=== PATIENT | male | born 1970 | race Caucasian/White ===

== ENCOUNTER 2021-06-02 12:26 | Inpatient (IN) ==
[2021-06-02 14:15] LABS: Basophils # 0.1 K/mcL (0.0-0.2); Basophils % 0.7 %; Eosinophils # 0.1 K/mcL (0.0-0.6); Eosinophils % 0.7 %; Hematocrit 42.5 % (37.5-50.1); Hemoglobin 14.5 g/dL (12.9-16.9); Lymphocytes # 2.4 K/mcL (0.6-4.6); Lymphocytes % 20.1 %; Mean Corpuscular HGB Conc 34.1 g/dL (31.6-35.5); Mean Corpuscular Hemoglobin 30.2 pg (28.0-33.3); Mean Corpuscular Volume 88.5 fL (83.0-100.0); Mean Platelet Volume 11.9 fL (9.4-12.4); Monocytes # 0.7 K/mcL (0.0-1.3); Monocytes % 5.8 %; Neutrophils # 8.4 K/mcL (1.6-8.9); Platelet Count 174 K/mcL (140-400); Red Cell Distribution Width 12.9 % (11.5-14.5); Segmented Neutrophils % 71.7 %; White Blood Count 11.7 K/mcL (4.3-11.1)
[2021-06-02 14:20] LABS: INR 1.1; Prothrombin Time 12.5 Seconds (9.4-12.1)
[2021-06-02 14:23] LABS: Activated Partial Thrombo Time 31.5 Seconds (26.0-36.0)
[2021-06-02 14:36] LABS: Alanine Aminotransferase 12 Units/L (7-52); Albumin 3.8 g/dL (3.5-5.7); Albumin/Globulin Ratio 0.8 (1.1-2.2); Alkaline Phosphatase 145 Units/L (34-104); Aspartate Amino Transferase 9 Units/L (13-39); BUN/Creatinine Ratio 13 (6-26); Bilirubin,Total 0.5 mg/dL (0.3-1.0); Blood Urea Nitrogen 7 mg/dL (6-20); Calcium 9.9 mg/dL (8.6-10.3); Carbon Dioxide 27 mEq/L (23-29); Chloride 91 mEq/L (98-107); Globulin 4.6 g/dL (2.4-3.5); Glucose 474 mg/dL (70-105); Osmolality,Calculated 285 (280-300); Potassium 4.5 mEq/L (3.5-5.1); Sodium 128 mEq/L (136-145); Total Protein 8.4 g/dL (6.4-8.9); eGFR For African Americans > 60 (> 60); eGFR For Non-African Americans > 60 (> 60)
[2021-06-02] MEDS ORDERED: Dextrose Gel 15 GM/37.5 ML TUBE PO PRN ×2 (16:23)
[2021-06-02] MEDS ORDERED: D5% in Water 1,000 ML IVC PRN (16:23)
[2021-06-02] MEDS ORDERED: Naloxone 0.4 MG/ML INJ IVP PRN (16:23)
[2021-06-02] MEDS ORDERED: *HR* Dextrose 50 % in Water (Syg) 50 ML SYRINGE IVP PRN (16:23)
[2021-06-02] MEDS ORDERED: Ondansetron 4 MG/2 ML VIAL IVP PRN (16:23)
[2021-06-02] MEDS ORDERED: Ringers Solution, Lactated 1,000 ML IVC SCH (17:00)
[2021-06-02] MEDS: Insulin LISPRO 300 UNITS/3 ML VIAL SUBQ SCH ×2 (17:09→20:13)
[2021-06-02] MEDS: *HR* OxyCODONE/APAP 5/325 TABLET PO PRN ×2 (17:09→21:52)
[2021-06-02] MEDS: Insulin DETEMIR 100 UNIT/ML X5UNITS SUBQ SCH (20:12)
[2021-06-02] MEDS: Pregabalin 50 MG CAPSULE PO SCH (20:12)
[2021-06-02] MEDS: Aspirin Enteric Coated 81 MG Tablet PO SCH (20:12)
[2021-06-02] MEDS: *HR* Buprenorphine HCl 8 MG TAB.SUBL SL SCH (20:12)
[2021-06-03] MEDS: *HR* OxyCODONE/APAP 5/325 TABLET PO PRN ×3 (01:54→13:25)
[2021-06-03 07:06] LABS: Hematocrit 40.4 % (37.5-50.1); Hemoglobin 13.6 g/dL (12.9-16.9); Mean Corpuscular HGB Conc 33.7 g/dL (31.6-35.5); Mean Corpuscular Hemoglobin 30.1 pg (28.0-33.3); Mean Corpuscular Volume 89.4 fL (83.0-100.0); Mean Platelet Volume 11.6 fL (9.4-12.4); Platelet Count 150 K/mcL (140-400); Red Blood Count 4.52 M/mcL (4.19-5.50); Red Cell Distribution Width 12.9 % (11.5-14.5); White Blood Count 7.9 K/mcL (4.3-11.1)
[2021-06-03 07:26] LABS: BUN/Creatinine Ratio 31 (6-26); Blood Urea Nitrogen 11 mg/dL (6-20); Calcium 8.9 mg/dL (8.6-10.3); Carbon Dioxide 28 mEq/L (23-29); Chloride 96 mEq/L (98-107); Glucose 264 mg/dL (70-105); Magnesium 1.6 mg/dL (1.6-2.6); Osmolality,Calculated 279 (280-300); Potassium 3.9 mEq/L (3.5-5.1); Sodium 130 mEq/L (136-145); eGFR For African Americans > 60 (> 60); eGFR For Non-African Americans > 60 (> 60)
[2021-06-03] MEDS: Insulin LISPRO 300 UNITS/3 ML VIAL SUBQ SCH ×4 (08:13→21:00)
[2021-06-03] MEDS ORDERED: Lidocaine -MPF 2% 5 ML VIAL ONE (08:22)
[2021-06-03] MEDS ORDERED: Ondansetron 4 MG/2 ML VIAL ONE (08:22)
[2021-06-03] MEDS ORDERED: *HR* Propofol 200 MG/20 ML VIAL IVP ONE (08:25)
[2021-06-03] MEDS ORDERED: *HR* FentaNYL (PF) 100 MCG/2 ML VIAL ONE (08:25)
[2021-06-03] MEDS ORDERED: *HR* Succinylcholine 200 MG/10 ML VIAL IVP ONE (08:27)
[2021-06-03] MEDS ORDERED: Famotidine 20 MG/2 ML VIAL IVP ONE (08:35)
[2021-06-03] MEDS ORDERED: Ondansetron 4 MG/2 ML VIAL IVP PRN (08:35)
[2021-06-03] MEDS ORDERED: *HR* OxyCODONE Immed Rel 5 MG TABLET PO PRN (08:35)
[2021-06-03] MEDS ORDERED: Lidocaine 1% 20 ML MDV ONE (08:39)
[2021-06-03] MEDS ORDERED: Pregabalin 75 MG CAPSULE PO ONE (08:40)
[2021-06-03] MEDS ORDERED: Insulin Human Regular 4 UNIT in 0.9 % Sodium Chloride 10 ML IV ONE (08:43)
[2021-06-03] MEDS ORDERED: Insulin Regular, Human 100 UNIT/ML ONE (09:01)
[2021-06-03] MEDS: Pregabalin 50 MG CAPSULE PO SCH ×3 (09:02→19:38)
[2021-06-03] MEDS: *HR* Buprenorphine HCl 8 MG TAB.SUBL SL SCH ×2 (09:02→19:38)
[2021-06-03] MEDS: Aspirin Enteric Coated 81 MG Tablet PO SCH ×2 (09:02→19:38)
[2021-06-03] MEDS ORDERED: CeFAZolin 2,000 MG/120 ML BAG IVPB ONE (10:00)
[2021-06-03] MEDS: *HR* HYDROmorphone PF 0.5 MG/0.5 ML SYRINGE IVP PRN ×8 (10:46→12:10)
[2021-06-03] MEDS ORDERED: Insulin Human Regular 3 UNIT in 0.9 % Sodium Chloride 10 ML IV ONE (11:13)
[2021-06-03] MEDS: *HR* OxyCODONE Immed Rel 5 MG TABLET PO PRN ×3 (16:12→23:07)
[2021-06-03] MEDS: Piperacillin/Tazobactam 3.375 GM in 0.9 % Sodium Chloride Mini Bag 100 ML IVPB SCH ×2 (16:44→23:07)
[2021-06-03] MEDS: Vancomycin 1,500 MG/265 ML IV.SOLN IVPB SCH (16:49)
[2021-06-03] MEDS: Insulin DETEMIR 100 UNIT/ML X5UNITS SUBQ SCH (19:40)
[2021-06-03] MEDS ORDERED: Ketorolac 30 MG/ML VIAL IVP ONE (20:19)
[2021-06-03] MEDS: Melatonin 3 MG TABLET PO PRN (21:00)
[2021-06-04] MEDS: *HR* OxyCODONE Immed Rel 5 MG TABLET PO PRN ×5 (06:00→20:26)
[2021-06-04] MEDS: Vancomycin 1,500 MG/265 ML IV.SOLN IVPB SCH (06:00)
[2021-06-04] MEDS: *HR* Enoxaparin 40 MG/0.4 ML SYRINGE SQ SCH (06:01)
[2021-06-04 07:14] LABS: Basophils % 0.5 %; Eosinophils % 0.5 %; Hematocrit 36.6 % (37.5-50.1); Hemoglobin 12.5 g/dL (12.9-16.9); Immature Granulocytes % 2.1 % (0-4); Lymphocytes # 2.3 K/mcL (0.6-4.6); Lymphocytes % 31.2 %; Mean Corpuscular HGB Conc 34.2 g/dL (31.6-35.5); Mean Corpuscular Hemoglobin 30.5 pg (28.0-33.3); Mean Corpuscular Volume 89.3 fL (83.0-100.0); Monocytes # 0.4 K/mcL (0.0-1.3); Monocytes % 5.8 %; Neutrophils # 4.5 K/mcL (1.6-8.9); Platelet Count 134 K/mcL (140-400); Red Cell Distribution Width 12.6 % (11.5-14.5); Segmented Neutrophils % 59.9 %; White Blood Count 7.5 K/mcL (4.3-11.1)
[2021-06-04] MEDS: Piperacillin/Tazobactam 3.375 GM in 0.9 % Sodium Chloride Mini Bag 100 ML IVPB SCH ×2 (07:45→16:18)
[2021-06-04] MEDS: Pregabalin 50 MG CAPSULE PO SCH ×3 (07:47→20:26)
[2021-06-04] MEDS: *HR* Buprenorphine HCl 8 MG TAB.SUBL SL SCH ×2 (07:47→20:26)
[2021-06-04] MEDS: Aspirin Enteric Coated 81 MG Tablet PO SCH ×2 (07:47→20:26)
[2021-06-04] MEDS: Insulin LISPRO 300 UNITS/3 ML VIAL SUBQ SCH ×7 (07:48→20:28)
[2021-06-04] MEDS ORDERED: *HR* OxyCODONE Immed Rel 5 MG TABLET PO PRN (10:44)
[2021-06-04] MEDS: Sennosides 8.6 MG TABLET PO SCH (11:20)
[2021-06-04 13:07] LABS: INR 1.1; Prothrombin Time 12.5 Seconds (9.4-12.1)
[2021-06-04 13:24] LABS: BUN/Creatinine Ratio 29 (6-26); Blood Urea Nitrogen 15 mg/dL (6-20); Calcium 8.5 mg/dL (8.6-10.3); Carbon Dioxide 27 mEq/L (23-29); Chloride 96 mEq/L (98-107); Glucose 299 mg/dL (70-105); Magnesium 1.5 mg/dL (1.6-2.6); Osmolality,Calculated 282 (280-300); Potassium 3.7 mEq/L (3.5-5.1); Sodium 130 mEq/L (136-145); eGFR For African Americans > 60 (> 60); eGFR For Non-African Americans > 60 (> 60)
[2021-06-04] MEDS ORDERED: Isovue-370 500 ML BOTTLE IVP ONE (15:44)
[2021-06-04] MEDS: Magnesium Oxide 400 MG TABLET PO SCH (16:24)
[2021-06-04] MEDS: amLODIPine 5 MG TABLET PO SCH (16:24)
[2021-06-04] MEDS ORDERED: Insulin DETEMIR 100 UNIT/ML X5UNITS SUBQ SCH (21:00)
[2021-06-05] MEDS: Piperacillin/Tazobactam 3.375 GM in 0.9 % Sodium Chloride Mini Bag 100 ML IVPB SCH ×4 (00:53→23:18)
[2021-06-05] MEDS: Vancomycin 1,500 MG/265 ML IV.SOLN IVPB SCH (00:53)
[2021-06-05] MEDS: *HR* OxyCODONE Immed Rel 5 MG TABLET PO PRN ×5 (03:02→20:42)
[2021-06-05] MEDS: *HR* Enoxaparin 40 MG/0.4 ML SYRINGE SQ SCH (05:36)
[2021-06-05] MEDS: Magnesium Oxide 400 MG TABLET PO SCH (07:45)
[2021-06-05] MEDS: Pregabalin 50 MG CAPSULE PO SCH ×3 (07:45→20:09)
[2021-06-05] MEDS: amLODIPine 5 MG TABLET PO SCH (07:45)
[2021-06-05] MEDS: Sennosides 8.6 MG TABLET PO SCH (07:46)
[2021-06-05] MEDS: Aspirin Enteric Coated 81 MG Tablet PO SCH ×2 (07:46→20:09)
[2021-06-05] MEDS: *HR* Buprenorphine HCl 8 MG TAB.SUBL SL SCH ×2 (07:46→20:09)
[2021-06-05] MEDS: Insulin LISPRO 300 UNITS/3 ML VIAL SUBQ SCH ×7 (07:47→20:48)
[2021-06-05] MEDS ORDERED: Vancomycin 1,500 MG/265 ML IV.SOLN IVPB SCH (12:00)
[2021-06-05] MEDS ORDERED: polyethylene glycoL 3350 17 GM POWD.PACK PO ONE (14:00)
[2021-06-05] MEDS: Vancomycin 1,750 MG/517.5 ML IV.SOLN IVPB SCH (14:42)
[2021-06-05 15:59] LABS: Basophils # 0.1 K/mcL (0.0-0.2); Basophils % 0.7 %; Eosinophils # 0.1 K/mcL (0.0-0.6); Hemoglobin 13.4 g/dL (12.9-16.9); Immature Granulocytes % 1.8 % (0-4); Lymphocytes % 28.2 %; Mean Corpuscular HGB Conc 36.2 g/dL (31.6-35.5); Mean Corpuscular Hemoglobin 31.2 pg (28.0-33.3); Mean Platelet Volume 11.3 fL (9.4-12.4); Monocytes # 0.5 K/mcL (0.0-1.3); Monocytes % 6.8 %; Neutrophils # 4.4 K/mcL (1.6-8.9); Platelet Count 188 K/mcL (140-400); Red Cell Distribution Width 12.7 % (11.5-14.5); Segmented Neutrophils % 61.5 %; White Blood Count 7.2 K/mcL (4.3-11.1)
[2021-06-05 16:25] LABS: Platelet Estimate Normal (Normal)
[2021-06-05] MEDS: Melatonin 3 MG TABLET PO PRN (20:41)
[2021-06-05] MEDS: Insulin DETEMIR 100 UNIT/ML X5UNITS SUBQ SCH (20:47)
[2021-06-05 21:30] LABS: BUN/Creatinine Ratio 25 (6-26); Blood Urea Nitrogen 13 mg/dL (6-20); Calcium 9.2 mg/dL (8.6-10.3); Carbon Dioxide 28 mEq/L (23-29); Chloride 93 mEq/L (98-107); Glucose 330 mg/dL (70-105); Magnesium 1.7 mg/dL (1.6-2.6); Osmolality,Calculated 277 (280-300); Potassium 4.8 mEq/L (3.5-5.1); Sodium 127 mEq/L (136-145); eGFR For African Americans > 60 (> 60); eGFR For Non-African Americans > 60 (> 60)
[2021-06-06] MEDS: Vancomycin 1,750 MG/517.5 ML IV.SOLN IVPB SCH ×2 (01:21→14:31)
[2021-06-06] MEDS: *HR* OxyCODONE Immed Rel 5 MG TABLET PO PRN ×5 (01:21→21:30)
[2021-06-06 04:58] LABS: Basophils # 0.1 K/mcL (0.0-0.2); Basophils % 0.7 %; Eosinophils # 0.1 K/mcL (0.0-0.6); Eosinophils % 1.2 %; Hematocrit 38.5 % (37.5-50.1); Hemoglobin 13.4 g/dL (12.9-16.9); Immature Granulocytes % 3.5 % (0-4); Lymphocytes # 1.7 K/mcL (0.6-4.6); Lymphocytes % 22.6 %; Mean Corpuscular HGB Conc 34.8 g/dL (31.6-35.5); Mean Corpuscular Hemoglobin 30.3 pg (28.0-33.3); Mean Corpuscular Volume 87.1 fL (83.0-100.0); Mean Platelet Volume 11.6 fL (9.4-12.4); Monocytes # 0.6 K/mcL (0.0-1.3); Monocytes % 7.3 %; Neutrophils # 4.9 K/mcL (1.6-8.9); Nucleated Red Blood Cells 0.9 /100 WBC (0); Platelet Count 161 K/mcL (140-400); Red Blood Count 4.42 M/mcL (4.19-5.50); Red Cell Distribution Width 12.9 % (11.5-14.5); Segmented Neutrophils % 64.7 %; White Blood Count 7.5 K/mcL (4.3-11.1)
[2021-06-06 05:11] LABS: BUN/Creatinine Ratio 30 (6-26); Blood Urea Nitrogen 13 mg/dL (6-20); Calcium 9.1 mg/dL (8.6-10.3); Carbon Dioxide 26 mEq/L (23-29); Chloride 98 mEq/L (98-107); Glucose 359 mg/dL (70-105); Osmolality,Calculated 287 (280-300); Potassium 4.8 mEq/L (3.5-5.1); Sodium 131 mEq/L (136-145); eGFR For African Americans > 60 (> 60); eGFR For Non-African Americans > 60 (> 60)
[2021-06-06] MEDS: *HR* Enoxaparin 40 MG/0.4 ML SYRINGE SQ SCH (05:27)
[2021-06-06] MEDS: Aspirin Enteric Coated 81 MG Tablet PO SCH ×2 (08:23→20:11)
[2021-06-06] MEDS: Magnesium Oxide 400 MG TABLET PO SCH (08:23)
[2021-06-06] MEDS: Pregabalin 50 MG CAPSULE PO SCH ×3 (08:24→20:12)
[2021-06-06] MEDS: *HR* Buprenorphine HCl 8 MG TAB.SUBL SL SCH ×2 (08:24→20:11)
[2021-06-06] MEDS: Piperacillin/Tazobactam 3.375 GM in 0.9 % Sodium Chloride Mini Bag 100 ML IVPB SCH ×2 (08:24→16:08)
[2021-06-06] MEDS: amLODIPine 5 MG TABLET PO SCH (08:24)
[2021-06-06] MEDS: Insulin LISPRO 300 UNITS/3 ML VIAL SUBQ SCH ×7 (08:25→20:12)
[2021-06-06] MEDS ORDERED: Sennosides 8.6 MG TABLET PO SCH (09:00)
[2021-06-06] MEDS ORDERED: Milk and Molasses Enema 200 ML RC ONE (11:42)
[2021-06-06] MEDS ORDERED: Isovue-370 500 ML BOTTLE IVP ONE (17:40)
[2021-06-06] MEDS: Sennosides 8.6 MG TABLET PO SCH (20:11)
[2021-06-06] MEDS: Insulin DETEMIR 100 UNIT/ML X5UNITS SUBQ SCH (20:12)
[2021-06-07] MEDS: Piperacillin/Tazobactam 3.375 GM in 0.9 % Sodium Chloride Mini Bag 100 ML IVPB SCH ×4 (00:20→23:33)
[2021-06-07] MEDS: *HR* OxyCODONE Immed Rel 5 MG TABLET PO PRN ×6 (01:26→23:31)
[2021-06-07 02:02] LABS: Basophils # 0.1 K/mcL (0.0-0.2); Basophils % 0.7 %; Eosinophils # 0.1 K/mcL (0.0-0.6); Eosinophils % 1.2 %; Hematocrit 38.5 % (37.5-50.1); Hemoglobin 13.6 g/dL (12.9-16.9); Immature Granulocytes % 2.9 % (0-4); Lymphocytes # 2.1 K/mcL (0.6-4.6); Lymphocytes % 25.5 %; Mean Corpuscular HGB Conc 35.3 g/dL (31.6-35.5); Mean Corpuscular Hemoglobin 30.4 pg (28.0-33.3); Mean Corpuscular Volume 85.9 fL (83.0-100.0); Mean Platelet Volume 11.6 fL (9.4-12.4); Monocytes # 0.6 K/mcL (0.0-1.3); Monocytes % 7.3 %; Neutrophils # 5.2 K/mcL (1.6-8.9); Platelet Count 180 K/mcL (140-400); Red Blood Count 4.48 M/mcL (4.19-5.50); Red Cell Distribution Width 12.8 % (11.5-14.5); Segmented Neutrophils % 62.4 %; White Blood Count 8.3 K/mcL (4.3-11.1)
[2021-06-07 02:39] LABS: BUN/Creatinine Ratio 21 (6-26); Blood Urea Nitrogen 13 mg/dL (6-20); Calcium 9.3 mg/dL (8.6-10.3); Carbon Dioxide 29 mEq/L (23-29); Chloride 94 mEq/L (98-107); Glucose 368 mg/dL (70-105); Osmolality,Calculated 281 (280-300); Potassium 4.6 mEq/L (3.5-5.1); Sodium 128 mEq/L (136-145); Vancomycin,Trough 7 mcg/mL (5-10); eGFR For African Americans > 60 (> 60); eGFR For Non-African Americans > 60 (> 60)
[2021-06-07] MEDS: Vancomycin 1,500 MG/265 ML IV.SOLN IVPB SCH ×3 (04:15→19:53)
[2021-06-07] MEDS: *HR* Enoxaparin 40 MG/0.4 ML SYRINGE SQ SCH (06:26)
[2021-06-07] MEDS: Insulin LISPRO 300 UNITS/3 ML VIAL SUBQ SCH ×7 (08:57→19:53)
[2021-06-07] MEDS: Sennosides 8.6 MG TABLET PO SCH ×2 (08:58→19:49)
[2021-06-07] MEDS: Aspirin Enteric Coated 81 MG Tablet PO SCH ×2 (08:58→19:50)
[2021-06-07] MEDS: *HR* Buprenorphine HCl 8 MG TAB.SUBL SL SCH ×2 (08:58→19:49)
[2021-06-07] MEDS: Pregabalin 50 MG CAPSULE PO SCH ×3 (08:58→19:49)
[2021-06-07] MEDS: amLODIPine 5 MG TABLET PO SCH (08:59)
[2021-06-07] MEDS: Magnesium Oxide 400 MG TABLET PO SCH (08:59)
[2021-06-07] MEDS ORDERED: Insulin DETEMIR 100 UNIT/ML X5UNITS SUBQ ONE (15:37)
[2021-06-07] MEDS ORDERED: Insulin DETEMIR 100 UNIT/ML X5UNITS SUBQ SCH ×2 (15:45→21:00)
[2021-06-08] MEDS ORDERED: Insulin Human Regular 10 UNIT in 0.9 % Sodium Chloride 10 ML IV ONE (01:47)
[2021-06-08] MEDS ORDERED: Insulin DETEMIR 100 UNIT/ML X5UNITS SUBQ ONE (02:36)
[2021-06-08] MEDS: *HR* OxyCODONE Immed Rel 5 MG TABLET PO PRN ×6 (03:32→23:26)
[2021-06-08] MEDS: *HR* Enoxaparin 40 MG/0.4 ML SYRINGE SQ SCH (05:17)
[2021-06-08] MEDS: Insulin LISPRO 300 UNITS/3 ML VIAL SUBQ SCH ×8 (05:17→20:49)
[2021-06-08 05:37] LABS: Basophils # 0.1 K/mcL (0.0-0.2); Basophils % 0.8 %; Eosinophils # 0.1 K/mcL (0.0-0.6); Eosinophils % 1.3 %; Hematocrit 37.2 % (37.5-50.1); Hemoglobin 13.2 g/dL (12.9-16.9); Immature Granulocytes % 1.3 % (0-4); Lymphocytes # 2.2 K/mcL (0.6-4.6); Lymphocytes % 27.8 %; Mean Corpuscular HGB Conc 35.5 g/dL (31.6-35.5); Mean Corpuscular Hemoglobin 30.8 pg (28.0-33.3); Mean Corpuscular Volume 86.9 fL (83.0-100.0); Mean Platelet Volume 11.6 fL (9.4-12.4); Monocytes # 0.6 K/mcL (0.0-1.3); Monocytes % 7.1 %; Neutrophils # 4.8 K/mcL (1.6-8.9); Platelet Count 170 K/mcL (140-400); Red Blood Count 4.28 M/mcL (4.19-5.50); Red Cell Distribution Width 13.2 % (11.5-14.5); Segmented Neutrophils % 61.7 %; White Blood Count 7.8 K/mcL (4.3-11.1)
[2021-06-08] MEDS ORDERED: Insulin LISPRO 300 UNITS/3 ML VIAL SUBQ SCH ×3 (06:00→20:34)
[2021-06-08 06:19] LABS: BUN/Creatinine Ratio 30 (6-26); Blood Urea Nitrogen 13 mg/dL (6-20); Calcium 9.3 mg/dL (8.6-10.3); Carbon Dioxide 27 mEq/L (23-29); Chloride 95 mEq/L (98-107); Glucose 322 mg/dL (70-105); Osmolality,Calculated 283 (280-300); Potassium 4.2 mEq/L (3.5-5.1); Sodium 130 mEq/L (136-145); eGFR For African Americans > 60 (> 60); eGFR For Non-African Americans > 60 (> 60)
[2021-06-08] MEDS: Vancomycin 1,750 MG/517.5 ML IV.SOLN IVPB SCH ×3 (06:44→22:06)
[2021-06-08] MEDS: Aspirin Enteric Coated 81 MG Tablet PO SCH ×2 (08:15→20:40)
[2021-06-08] MEDS: amLODIPine 5 MG TABLET PO SCH (08:16)
[2021-06-08] MEDS: *HR* Buprenorphine HCl 8 MG TAB.SUBL SL SCH ×2 (08:16→20:40)
[2021-06-08] MEDS: Pregabalin 50 MG CAPSULE PO SCH ×2 (08:16→20:40)
[2021-06-08] MEDS: Magnesium Oxide 400 MG TABLET PO SCH (08:16)
[2021-06-08] MEDS: Sennosides 8.6 MG TABLET PO SCH ×2 (08:16→20:40)
[2021-06-08] MEDS: Piperacillin/Tazobactam 3.375 GM in 0.9 % Sodium Chloride Mini Bag 100 ML IVPB SCH (08:17)
[2021-06-08] MEDS: *HR* HYDROmorphone (PF) 1 MG/ML SYRINGE IVP PRN ×3 (11:52→20:41)
[2021-06-08] MEDS ORDERED: Vancomycin 1,000 MG VIAL ONE (13:09)
[2021-06-08] MEDS ORDERED: *HR* OxyCODONE Immed Rel 5 MG TABLET PO PRN ×3 (13:10→16:55)
[2021-06-08] MEDS ORDERED: Ondansetron 4 MG/2 ML VIAL IVP PRN ×3 (13:10→16:55)
[2021-06-08] MEDS ORDERED: Promethazine 6.25 MG in Water for inj. (sterile) 20 ML IVPB PRN (13:10)
[2021-06-08] MEDS ORDERED: *HR* Propofol 200 MG/20 ML VIAL IVP ONE (13:13)
[2021-06-08] MEDS ORDERED: Lidocaine -MPF 2% 2 ML VIAL ONE (13:13)
[2021-06-08] MEDS ORDERED: *HR* Rocuronium Bromide 50 MG/5 ML VIAL ONE (13:13)
[2021-06-08] MEDS ORDERED: Lidocaine HCL 4 ML Topical Solution (Laryng-O-Jet Kit Sterile Pak) TP ONE (13:15)
[2021-06-08] MEDS ORDERED: *HR* Midazolam HCl 2 MG/2 ML VIAL ONE (13:52)
[2021-06-08] MEDS ORDERED: *HR* FentaNYL (PF) 100 MCG/2 ML VIAL ONE ×2 (13:53→14:52)
[2021-06-08] MEDS ORDERED: EPHEDrine 50 MG/ML VIAL ONE (14:43)
[2021-06-08] MEDS ORDERED: *HR* Vasopressin 20 UNIT/ML VIAL ONE (14:52)
[2021-06-08] MEDS ORDERED: Vancomycin 1,000 MG, Sodium Chloride IRRigation 1,000 ML IR ONE (15:00)
[2021-06-08] MEDS: *HR* HYDROmorphone PF 0.5 MG/0.5 ML SYRINGE IVP PRN ×4 (15:49→16:09)
[2021-06-08] MEDS ORDERED: Ringers Solution, Lactated 1,000 ML ONE (16:18)
[2021-06-08] MEDS ORDERED: *HR* Labetalol 20 MG/4 ML SYRINGE IVP PRN (16:55)
[2021-06-08] MEDS ORDERED: D5% in Water 1,000 ML IVC PRN (16:55)
[2021-06-08] MEDS ORDERED: Melatonin 3 MG TABLET PO PRN (16:55)
[2021-06-08] MEDS ORDERED: Naloxone 0.4 MG/ML INJ IVP PRN (16:55)
[2021-06-08] MEDS ORDERED: Dextrose Gel 15 GM/37.5 ML TUBE PO PRN ×2 (16:55)
[2021-06-08] MEDS ORDERED: *HR* Dextrose 50 % in Water (Syg) 50 ML SYRINGE IVP PRN (16:55)
[2021-06-08] MEDS ORDERED: *HR* Labetalol 20 MG/4 ML SYRINGE IVP ONE (16:57)
[2021-06-08] MEDS ORDERED: Ketorolac 30 MG/ML VIAL IVP ONE (18:22)
[2021-06-08] MEDS ORDERED: Insulin DETEMIR 100 UNIT/ML X5UNITS SUBQ SCH (21:00)
[2021-06-08] MEDS ORDERED: Insulin LISPRO 300 UNITS/3 ML VIAL SUBQ ONE (23:17)
[2021-06-09] MEDS: *HR* HYDROmorphone (PF) 1 MG/ML SYRINGE IVP PRN ×4 (00:51→23:31)
[2021-06-09] MEDS: Insulin LISPRO 300 UNITS/3 ML VIAL SUBQ SCH ×9 (00:53→21:30)
[2021-06-09] MEDS: *HR* OxyCODONE Immed Rel 5 MG TABLET PO PRN ×4 (05:20→21:29)
[2021-06-09] MEDS: *HR* Enoxaparin 40 MG/0.4 ML SYRINGE SQ SCH (05:20)
[2021-06-09] MEDS: Vancomycin 1,750 MG/517.5 ML IV.SOLN IVPB SCH (05:26)
[2021-06-09 06:49] LABS: Hematocrit 28.6 % (37.5-50.1); Mean Corpuscular HGB Conc 33.9 g/dL (31.6-35.5); Mean Corpuscular Hemoglobin 30.1 pg (28.0-33.3); Mean Corpuscular Volume 88.8 fL (83.0-100.0); Mean Platelet Volume 11.8 fL (9.4-12.4); Platelet Count 153 K/mcL (140-400); Red Blood Count 3.22 M/mcL (4.19-5.50); Red Cell Distribution Width 13.4 % (11.5-14.5); White Blood Count 10.4 K/mcL (4.3-11.1)
[2021-06-09 06:51] LABS: Hemoglobin 9.7 g/dL (12.9-16.9)
[2021-06-09 07:03] LABS: BUN/Creatinine Ratio 24 (6-26); Blood Urea Nitrogen 29 mg/dL (6-20); Calcium 8.7 mg/dL (8.6-10.3); Carbon Dioxide 27 mEq/L (23-29); Chloride 94 mEq/L (98-107); Glucose 326 mg/dL (70-105); Magnesium 1.8 mg/dL (1.6-2.6); Osmolality,Calculated 284 (280-300); Potassium 4.4 mEq/L (3.5-5.1); Sodium 128 mEq/L (136-145); eGFR For African Americans > 60 (> 60); eGFR For Non-African Americans > 60 (> 60)
[2021-06-09] MEDS: Pregabalin 50 MG CAPSULE PO SCH ×3 (07:57→21:29)
[2021-06-09] MEDS: Magnesium Oxide 400 MG TABLET PO SCH (07:57)
[2021-06-09] MEDS: Aspirin Enteric Coated 81 MG Tablet PO SCH ×2 (07:57→21:28)
[2021-06-09] MEDS: Sennosides 8.6 MG TABLET PO SCH ×2 (07:57→21:29)
[2021-06-09] MEDS: amLODIPine 5 MG TABLET PO SCH (07:58)
[2021-06-09] MEDS: *HR* Buprenorphine HCl 8 MG TAB.SUBL SL SCH ×2 (07:58→21:29)
[2021-06-09] MEDS ORDERED: Insulin DETEMIR 100 UNIT/ML X5UNITS SUBQ SCH (21:00)
[2021-06-10] MEDS: *HR* OxyCODONE Immed Rel 5 MG TABLET PO PRN ×5 (01:55→22:06)
[2021-06-10] MEDS ORDERED: polyethylene glycoL 3350 17 GM POWD.PACK PO PRN (02:44)
[2021-06-10] MEDS: *HR* HYDROmorphone (PF) 1 MG/ML SYRINGE IVP PRN ×7 (02:57→21:30)
[2021-06-10] MEDS: Insulin LISPRO 300 UNITS/3 ML VIAL SUBQ SCH ×8 (02:58→21:29)
[2021-06-10 05:06] LABS: Mean Corpuscular HGB Conc 33.3 g/dL (31.6-35.5); Mean Corpuscular Hemoglobin 30.1 pg (28.0-33.3); Mean Corpuscular Volume 90.3 fL (83.0-100.0); Mean Platelet Volume 12.1 fL (9.4-12.4); Platelet Count 149 K/mcL (140-400); Red Blood Count 2.99 M/mcL (4.19-5.50); Red Cell Distribution Width 13.8 % (11.5-14.5); White Blood Count 11.2 K/mcL (4.3-11.1)
[2021-06-10] MEDS ORDERED: Insulin Human Regular 5 UNIT in 0.9 % Sodium Chloride 10 ML IV ONE (05:19)
[2021-06-10 05:21] LABS: BUN/Creatinine Ratio 26 (6-26); Blood Urea Nitrogen 32 mg/dL (6-20); Calcium 9.9 mg/dL (8.6-10.3); Carbon Dioxide 27 mEq/L (23-29); Chloride 95 mEq/L (98-107); Glucose 409 mg/dL (70-105); Magnesium 1.8 mg/dL (1.6-2.6); Osmolality,Calculated 290 (280-300); Potassium 5.1 mEq/L (3.5-5.1); Sodium 128 mEq/L (136-145); eGFR For African Americans > 60 (> 60); eGFR For Non-African Americans > 60 (> 60)
[2021-06-10] MEDS: *HR* Enoxaparin 40 MG/0.4 ML SYRINGE SQ SCH (06:00)
[2021-06-10] MEDS ORDERED: Insulin DETEMIR 100 UNIT/ML X5UNITS SUBQ SCH (06:00)
[2021-06-10] MEDS: Pregabalin 50 MG CAPSULE PO SCH ×3 (07:34→21:25)
[2021-06-10] MEDS: Aspirin Enteric Coated 81 MG Tablet PO SCH ×2 (07:35→21:26)
[2021-06-10] MEDS: *HR* Buprenorphine HCl 8 MG TAB.SUBL SL SCH ×2 (07:35→21:25)
[2021-06-10] MEDS: Magnesium Oxide 400 MG TABLET PO SCH (07:35)
[2021-06-10] MEDS: Sennosides 8.6 MG TABLET PO SCH ×2 (07:35→21:28)
[2021-06-10] MEDS: amLODIPine 5 MG TABLET PO SCH (07:35)
[2021-06-10] MEDS ORDERED: Bisacodyl 10 MG RECTAL SUPPOSITORY RC PRN (09:52)
[2021-06-10] MEDS ORDERED: Insulin LISPRO 300 UNITS/3 ML VIAL SUBQ ONE (15:49)
[2021-06-10] MEDS: Insulin DETEMIR 100 UNIT/ML X5UNITS SUBQ SCH (18:08)
[2021-06-11] MEDS: *HR* HYDROmorphone (PF) 1 MG/ML SYRINGE IVP PRN ×6 (00:39→23:34)
[2021-06-11] MEDS: Insulin LISPRO 300 UNITS/3 ML VIAL SUBQ SCH ×10 (01:48→23:37)
[2021-06-11] MEDS: *HR* OxyCODONE Immed Rel 5 MG TABLET PO PRN ×5 (02:07→22:10)
[2021-06-11] MEDS ORDERED: *HR* HYDROmorphone (PF) 1 MG/ML SYRINGE IVP ONE (03:00)
[2021-06-11] MEDS ORDERED: Vancomycin 1,500 MG/265 ML IV.SOLN IVPB ONE (04:08)
[2021-06-11] MEDS: Insulin DETEMIR 100 UNIT/ML X5UNITS SUBQ SCH ×2 (06:16→18:06)
[2021-06-11] MEDS: *HR* Enoxaparin 40 MG/0.4 ML SYRINGE SQ SCH (06:16)
[2021-06-11] MEDS: Magnesium Oxide 400 MG TABLET PO SCH (07:46)
[2021-06-11] MEDS: *HR* Buprenorphine HCl 8 MG TAB.SUBL SL SCH ×2 (07:46→20:32)
[2021-06-11] MEDS: Sennosides 8.6 MG TABLET PO SCH ×2 (07:46→20:32)
[2021-06-11] MEDS: amLODIPine 5 MG TABLET PO SCH (07:46)
[2021-06-11] MEDS: Pregabalin 50 MG CAPSULE PO SCH ×3 (07:46→20:32)
[2021-06-11] MEDS: Aspirin Enteric Coated 81 MG Tablet PO SCH ×2 (07:47→20:32)
[2021-06-11] MEDS ORDERED: Milk and Molasses Enema 200 ML RC PRN (15:04)
[2021-06-12 01:00] LABS: Hematocrit 26.4 % (37.5-50.1); Hemoglobin 8.8 g/dL (12.9-16.9); Mean Corpuscular HGB Conc 33.3 g/dL (31.6-35.5); Mean Corpuscular Hemoglobin 30.6 pg (28.0-33.3); Mean Corpuscular Volume 91.7 fL (83.0-100.0); Mean Platelet Volume 12.2 fL (9.4-12.4); Platelet Count 154 K/mcL (140-400); Red Blood Count 2.88 M/mcL (4.19-5.50); Red Cell Distribution Width 14.3 % (11.5-14.5); White Blood Count 8.9 K/mcL (4.3-11.1)
[2021-06-12 01:17] LABS: BUN/Creatinine Ratio 25 (6-26); Blood Urea Nitrogen 33 mg/dL (6-20); Calcium 10.2 mg/dL (8.6-10.3); Carbon Dioxide 31 mEq/L (23-29); Chloride 93 mEq/L (98-107); Glucose 452 mg/dL (70-105); Osmolality,Calculated 303 (280-300); Potassium 4.5 mEq/L (3.5-5.1); Sodium 133 mEq/L (136-145); eGFR For African Americans > 60 (> 60); eGFR For Non-African Americans 56 (> 60)
[2021-06-12] MEDS: *HR* HYDROmorphone (PF) 1 MG/ML SYRINGE IVP PRN ×4 (02:34→19:52)
[2021-06-12] MEDS: Insulin LISPRO 300 UNITS/3 ML VIAL SUBQ SCH ×8 (04:52→22:41)
[2021-06-12] MEDS: *HR* OxyCODONE Immed Rel 5 MG TABLET PO PRN ×4 (04:52→22:34)
[2021-06-12] MEDS: *HR* Enoxaparin 40 MG/0.4 ML SYRINGE SQ SCH (04:52)
[2021-06-12] MEDS: Pregabalin 50 MG CAPSULE PO SCH ×3 (07:54→19:52)
[2021-06-12] MEDS: *HR* Buprenorphine HCl 8 MG TAB.SUBL SL SCH ×2 (07:54→19:52)
[2021-06-12] MEDS: Sennosides 8.6 MG TABLET PO SCH ×2 (07:55→19:52)
[2021-06-12] MEDS: Magnesium Oxide 400 MG TABLET PO SCH (07:55)
[2021-06-12] MEDS: Aspirin Enteric Coated 81 MG Tablet PO SCH ×2 (07:56→19:52)
[2021-06-12] MEDS: amLODIPine 5 MG TABLET PO SCH (07:56)
[2021-06-12] MEDS: Insulin DETEMIR 100 UNIT/ML X5UNITS SUBQ SCH ×2 (09:24→17:52)
[2021-06-12] MEDS ORDERED: 0.9 % Sodium Chloride 1,000 ML IVC SCH (12:00)
[2021-06-13] MEDS: *HR* HYDROmorphone (PF) 1 MG/ML SYRINGE IVP PRN ×5 (00:25→19:08)
[2021-06-13] MEDS: Insulin LISPRO 300 UNITS/3 ML VIAL SUBQ SCH ×9 (00:26→22:42)
[2021-06-13] MEDS: *HR* OxyCODONE Immed Rel 5 MG TABLET PO PRN ×5 (02:41→22:41)
[2021-06-13 03:02] LABS: Hematocrit 25.9 % (37.5-50.1); Hemoglobin 8.4 g/dL (12.9-16.9); Mean Corpuscular HGB Conc 32.4 g/dL (31.6-35.5); Mean Corpuscular Hemoglobin 30.1 pg (28.0-33.3); Mean Corpuscular Volume 92.8 fL (83.0-100.0); Mean Platelet Volume 12.2 fL (9.4-12.4); Platelet Count 160 K/mcL (140-400); Red Blood Count 2.79 M/mcL (4.19-5.50); Red Cell Distribution Width 14.9 % (11.5-14.5); White Blood Count 8.6 K/mcL (4.3-11.1)
[2021-06-13 03:05] LABS: BUN/Creatinine Ratio 32 (6-26); Blood Urea Nitrogen 37 mg/dL (6-20); Calcium 9.8 mg/dL (8.6-10.3); Carbon Dioxide 30 mEq/L (23-29); Chloride 102 mEq/L (98-107); Glucose 239 mg/dL (70-105); Osmolality,Calculated 286 (280-300); Potassium 4.1 mEq/L (3.5-5.1); Sodium 130 mEq/L (136-145); eGFR For African Americans > 60 (> 60); eGFR For Non-African Americans > 60 (> 60)
[2021-06-13] MEDS: *HR* Enoxaparin 40 MG/0.4 ML SYRINGE SQ SCH (06:28)
[2021-06-13] MEDS: Insulin DETEMIR 100 UNIT/ML X5UNITS SUBQ SCH ×2 (06:28→17:21)
[2021-06-13] MEDS: Pregabalin 50 MG CAPSULE PO SCH ×3 (08:16→22:40)
[2021-06-13] MEDS: Magnesium Oxide 400 MG TABLET PO SCH (08:16)
[2021-06-13] MEDS: Aspirin Enteric Coated 81 MG Tablet PO SCH ×2 (08:16→22:41)
[2021-06-13] MEDS: amLODIPine 5 MG TABLET PO SCH (08:16)
[2021-06-13] MEDS: *HR* Buprenorphine HCl 8 MG TAB.SUBL SL SCH ×2 (08:17→22:41)
[2021-06-13] MEDS: Sennosides 8.6 MG TABLET PO SCH ×2 (08:17→22:41)
[2021-06-14] MEDS: Insulin LISPRO 300 UNITS/3 ML VIAL SUBQ SCH ×9 (00:58→20:43)
[2021-06-14] MEDS: *HR* HYDROmorphone (PF) 1 MG/ML SYRINGE IVP PRN ×5 (01:06→22:23)
[2021-06-14] MEDS: *HR* OxyCODONE Immed Rel 5 MG TABLET PO PRN ×4 (04:39→20:42)
[2021-06-14] MEDS: Insulin DETEMIR 100 UNIT/ML X5UNITS SUBQ SCH ×2 (06:08→17:43)
[2021-06-14] MEDS: *HR* Enoxaparin 40 MG/0.4 ML SYRINGE SQ SCH (06:08)
[2021-06-14] MEDS: Magnesium Oxide 400 MG TABLET PO SCH (08:47)
[2021-06-14] MEDS: Pregabalin 50 MG CAPSULE PO SCH ×3 (08:47→20:41)
[2021-06-14] MEDS: Sennosides 8.6 MG TABLET PO SCH ×2 (08:48→20:42)
[2021-06-14] MEDS: Aspirin Enteric Coated 81 MG Tablet PO SCH ×2 (08:48→20:42)
[2021-06-14] MEDS: amLODIPine 5 MG TABLET PO SCH (08:48)
[2021-06-14] MEDS: *HR* Buprenorphine HCl 8 MG TAB.SUBL SL SCH ×2 (08:48→20:42)
[2021-06-15] MEDS: Insulin LISPRO 300 UNITS/3 ML VIAL SUBQ SCH ×6 (00:55→12:27)
[2021-06-15 03:43] VITALS: O2SAT 96
[2021-06-15] MEDS: *HR* Enoxaparin 40 MG/0.4 ML SYRINGE SQ SCH (05:08)
[2021-06-15] MEDS: *HR* HYDROmorphone (PF) 1 MG/ML SYRINGE IVP PRN ×2 (05:26→12:27)
[2021-06-15] MEDS: Insulin DETEMIR 100 UNIT/ML X5UNITS SUBQ SCH (05:35)
[2021-06-15] MEDS: Pregabalin 50 MG CAPSULE PO SCH ×2 (08:51→14:49)
[2021-06-15] MEDS: Magnesium Oxide 400 MG TABLET PO SCH (08:52)
[2021-06-15] MEDS: *HR* Buprenorphine HCl 8 MG TAB.SUBL SL SCH (08:52)
[2021-06-15] MEDS: amLODIPine 5 MG TABLET PO SCH (08:52)
[2021-06-15] MEDS: *HR* OxyCODONE Immed Rel 5 MG TABLET PO PRN ×2 (08:52→14:49)
[2021-06-15] MEDS: Sennosides 8.6 MG TABLET PO SCH (08:52)
[2021-06-15] MEDS: Aspirin Enteric Coated 81 MG Tablet PO SCH (08:52)
[2021-06-15 10:16] LABS: Estimated Average Glucose 243 mg/dl; Hemoglobin A1C 10.1 %
[2021-06-15 11:27] LABS: Adenovirus Not Detected (Not Detect); Bordetella Pertussis Not Detected (Not Detect); Chlamydophila pneumoniae Not Detected (Not Detect); Coronavirus 229E Not Detected (Not Detect); Coronavirus HKU1 Not Detected (Not Detect); Coronavirus NL63 Not Detected (Not Detect); Coronavirus OC43 Not Detected (Not Detect); Human Metapneumovirus Not Detected (Not Detect); Human Rhinovirus/Enterovirus Not Detected (Not Detect); Influenza A Subtype 2009 H1 Not Detected (Not Detect); Influenza B Not Detected (Not Detect); Mycoplasma pneumoniae Not Detected (Not Detect); Parainfluenza Virus 1 Not Detected (Not Detect); Parainfluenza Virus 2 Not Detected (Not Detect); Parainfluenza Virus 3 Not Detected (Not Detect); Parainfluenza Virus 4 Not Detected (Not Detect); Respiratory Syncytial Virus Not Detected (Not Detect); SARS-CoV-2 Not Detected (Not Detect)
[2021-06-15 14:54] VITALS: BP 135/68; PULSE 101; TEMP 98.1
== END 2021-06-15 13:10 | DRG 305 ==
LOC: 4WAOSI 12:26 → EMEROOARM 12:26 → 4WAOSI 16:04 → SUATTDRO 18:19
PROVIDERS: ADMIT Internal Medicine; ATTEND Registered Nurse